=== PATIENT | male | born 1965 | race African-American/Black ===

== ENCOUNTER 2017-08-02 20:23 | Emergency (ER) | payer SELFPAY ==
[~2017-08-02] VITALS: Ht 182.9 cm; Wt 72.7 kg
[2017-08-02] MEDS ORDERED: CLON-570 PO ×2 (20:35)
[2017-08-02] MEDS ORDERED: BUDE3CAP15 PO (20:35)
[2017-08-02] MEDS ORDERED: ROSU10 PO (20:35)
[2017-08-02] MEDS ORDERED: ZOLP10TA7 PO (20:35)
[2017-08-02] MEDS ORDERED: LISI-661 PO (20:35)
[2017-08-02] MEDS ORDERED: GABA-529 PO (20:35)
[2017-08-02] MEDS ORDERED: OMEP20 PO (20:35)
[2017-08-02] MEDS ORDERED: CLON1 PO (20:35)
[2017-08-02] MEDS ORDERED: HALOPERIDOL LACTATE 5 MG/ML VIAL IVP ONE (21:15)
[2017-08-02 21:25] LABS: BASOPHILS % (AUTO) 0.6 % (0.0-2.0); EOSINOPHILS % (AUTO) 0.9 % (1.0-6.0); HEMOGLOBIN 9.3 g/dL (13.5-17.5); LYMPHOCYTES # (AUTO) 2.1 K/uL (1.0-4.8); LYMPHOCYTES % (AUTO) 38.4 % (22.0-44.0); MEAN CORPUSCULAR HEMOGLOBIN 21.7 pg (26.0-34.0); MEAN CORPUSCULAR HGB CONC 32.1 G/dL (31.0-37.0); MEAN CORPUSCULAR VOLUME 68 fL (80-100); MONOCYTES # (AUTO) 0.4 K/uL (0.1-1.0); MONOCYTES % (AUTO) 7.5 % (2.0-9.0); NEUTROPHILS # (AUTO) 2.9 K/uL (1.8-7.7); NEUTROPHILS % (AUTO) 52.6 % (40.0-70.0); PLATELET COUNT (AUTO) 583 K/uL (150-450); RED BLOOD CELL COUNT(AUTO) 4.29 MIL/uL (4.50-5.90); RED CELL DISTRIBUTION WIDTH 23.7 % (11.5-14.5)
[2017-08-02 21:38] LABS: ANION GAP 3 mmol/L (8-16); CALCIUM, TOTAL 7.7 mg/dL (8.8-10.5); CARBON DIOXIDE 31 mmol/L (22-29); CHLORIDE 107 mmol/L (98-107); CREATININE 1.06 mg/dL (0.60-1.30); GLOMERULAR FILTR. RATE CALC > 60 mL/min (>60); GLUCOSE,RANDOM 86 mg/dL (70-110); POTASSIUM 3.4 mmol/L (3.5-5.1); SODIUM SERUM 141 mmol/L (136-145); UREA NITROGEN, BLOOD 11 mg/dL (7-18)
[2017-08-02 21:45] LABS: ALANINE AMINOTRANSFERASE 8 U/L (12-78); ALBUMIN 2.1 g/dL (3.4-5.0); ALKALINE PHOSPHATASE 126 U/L (46-116); ASPARTATE AMINOTRANSFERASE 7 U/L (15-37); BILIRUBIN,TOTAL 0.1 mg/dL (0.1-1.0)
[2017-08-02] MEDS ORDERED: KETOROLAC TROMETHAMINE 30 MG/ML VIAL IVP ONE (22:00)
[2017-08-02] MEDS ORDERED: POTASSIUM CHLORIDE 20 MEQ ER TABLET PO ONE (22:00)
[2017-08-02 22:43] VITALS: BP 148/89
== END 2017-08-02 22:47 | disposition home or self-care (01) ==
LOC: EMS 20:24
DX: R00.2 Palpitations (principal); E87.6 Hypokalemia; F41.9 Anxiety disorder, unspecified; G47.00 Insomnia, unspecified; F17.210 Nicotine dependence, cigarettes, uncomplicated; Z86.73 Personal history of transient ischemic attack (TIA), and cerebral infarction without residual deficits
CPT/HCPCS: 36415; 71045; 80053; 84484; 85025; 93005; 96374; 96375; 99285; J1630; J1885